=== PATIENT | male | born 1985 | race Caucasian/White ===

== ENCOUNTER 2023-12-26 19:49 | Emergency (ER) | payer SELFPAY ==
[2023-12-26 20:04] VITALS: BP 143/96; PULSE 83; TEMP 36.7; O2SAT 100; BMI 25.8
--- NOTE | 2023-12-26 20:14 | XR_ITS ---
The [address] [address] Patient Name: JUAN BRYANT MRN: [id number] date: 1985 Sex: M Assigned Patient Location: ER Current Patient Location: Accession/Order Number: [id number] Exam Date: 12/26/2023 20:45 Report Date: 12/26/2023 22:36 At the request of: JOSEFINA MICHEL Procedure: XR knee RT 4V EXAM: XR knee RT 4V HISTORY: The patient is a 38-year-old male, right knee pain COMPARISON: None. FINDINGS: The right knee is radiographically negative with no evidence of fracture, dislocation, joint space narrowing, osteophytes, or other osseous or articular abnormalities. XR/XR knee RT 4V IMPRESSION: Negative. Electronically authenticated by: JACEY MENDEZ Date: 12/26/2023 22:36
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
[2023-12-26] MEDS: HYDROCODONE/ACET 5-325 MG TABLET 1 TAB PO (21:32)
[2023-12-26] MEDS: HYDROCODONE/ACET 5-325 MG TABLET 2 TAB PO (21:32)
[2023-12-26] MEDS: IBUPROFEN 600 MG TABLET PO (21:32)
== END 2023-12-26 21:41 | disposition home or self-care (01) ==
PROVIDERS: Emergency Provider Emergency Medicine
DX: S83.91XA Sprain of unspecified site of right knee, initial encounter (principal); Y04.2XXA Assault by strike against or bumped into by another person, initial encounter
CPT/HCPCS: 73564; 99283